=== PATIENT | female | born 1980 | race American Indian/Alaskan Native ===

== ENCOUNTER 2017-06-06 12:54 | Emergency (ER) | payer SELFPAY ==
[2017-06-06 14:28] LABS: Basophils % (Auto) 0.4 % (0.0-1.8); Eosinophils # (Auto) 0.1 K/mm3 (0.0-0.4); Eosinophils % (Auto) 1.3 % (0.0-4.3); Hematocrit 39.7 % (30.3-42.9); Hemoglobin 13.4 gm/dl (10.1-14.3); Lymphocytes # (Auto) 1.7 K/mm3 (1.2-5.4); Lymphocytes % (Auto) 31.6 % (13.4-35.0); Mean Corpuscular HGB Conc 34 % (30-34); Mean Corpuscular Hemoglobin 32 pg (28-32); Mean Corpuscular Volume 95 fl (79-97); Monocytes # (Auto) 0.4 K/mm3 (0.0-0.8); Monocytes % (Auto) 7.3 % (0.0-7.3); Platelet Count 218 K/mm3 (140-440); Red Blood Count 4.18 M/mm3 (3.65-5.03); Red Cell Distribution Width 13.5 % (13.2-15.2)
[2017-06-06 14:47] LABS: Alanine Aminotransferase 19 units/L (7-56); Albumin 4.1 g/dL (3.9-5); BUN/Creatinine Ratio 24; Blood Urea Nitrogen 12 mg/dL (7-17); Calcium 9.1 mg/dL (8.4-10.2); Hemolysis Index 7
[2017-06-06 17:52] LABS: Bilirubin,Urine NEG (Negative); Blood,Urine NEG (Negative); Color,Urine Yellow (Yellow); Nitrite,Urine NEG (Negative); Protein,Urine <15 mg/dL mg/dL (Negative); Urobilinogen,Urine < 2.0 mg/dL (<2.0)
--- NOTE | 2017-06-06 20:52 | Emergency Department Report ---
Chief Complaint: Abdominal Pain Stated Complaint: ABD PAIN, BURNING URINE, ITCHING - HPI History of Present Illness: 36-year-old female past medical history uterine fibroids, ovarian cysts presents with complaint of pelvic pain slight dysuria and vaginal discharge. Patient is awake alert and oriented 3 state she is having some lower abdominal discomfort and pain. Slight nausea no vomiting. States it began yesterday. States she is able tolerate fluids without significant difficulty. - ROS Review of Systems: History of ovarian cysts and uterine fibroids - Exam Vital Signs: Vital Signs 06/06/17 13:37 Temperature 99.1 F Pulse Rate 84 Respiratory 18 Rate Blood Pressure 116/62 O2 Sat by Pulse 98 Oximetry Physical Exam: Positive suprapubic pain, some right lower quadrant pain MSE screening note: Focused history and physical exam performed. Due to findings the following was ordered: Screening Assessment/Plan/Differential Dx: Pelvic pain, lower abdominal pain female 1- This initial assessment/diagnostic orders/clinical plan/ treatment(s) is/are subject to change based on pt's health status, clinical progression and re- assessment by fellow clinical providers in the ED. Further treatment and workup at subsequent clinical provers discretion. Patient/guardians urged not to elope from ED as their condition may be serious if not clinically assessed and managed. 2-ultrasound pelvis with Doppler to assess ovary, urinalysis CBC and BMP are unremarkable 3-patient will need pelvic swabs and pelvic exam ED Medical Decision Making - Lab Data Result diagrams: 06/06/17 14:00 06/06/17 14:00 ED Disposition for MSE Condition: Stable Instructions: Abdominal Pain (ED) Referrals: SUSSY KING MD [Primary Care Provider] - 3-5 Days
[2017-06-06] MEDS ORDERED: TORADOL IV ONE (21:05)
[2017-06-06] MEDS ORDERED: NACL 0.9% 1000 ML 1,000 ML IV ONE (22:31)
--- NOTE | 2017-06-06 22:42 | Emergency Department Report ---
<KELLEE CROW - Last Filed: 06/06/17 23:10> ED Female HPI - General Chief complaint: Abdominal Pain Stated complaint: ABD PAIN, BURNING URINE, ITCHING Time Seen by Provider: 06/06/17 22:38 Source: patient Mode of arrival: Ambulatory Limitations: No Limitations - History of Present Illness Initial comments: 36-year-old female past medical history ovarian cysts, tubal ligation presents with complaint of sharp to crampy lower abdominal pain for approximately 3-4 days and somewhat intermittently over the last week. Slightly worse on right than left. Possible dysuria reported by patient minimally increased urinary frequency. Patient also states she has whitish vaginal discharge and is concerned she may have been exposed to STD. Patient states the reason she came to the ED is because she is having lower abdominal pain/pelvic pain. Patient is awake alert and oriented 3 does not appear to be in severe distress. MD Complaint: vaginal discharge, dysuria, pelvic pain Onset/Timin -: days(s) Location: suprapubic, RLQ Radiation: suprapubic, RLQ Severity: moderate Severity scale (0 -10): 6 Quality: cramping, sharp Worsens with: urination Are you Now?: No Last Menstrual Period: 05/28/16 EDC: 03/04/17 - Related Data Previous Rx's Medication Instructions Recorded Last Taken Type Ciprofloxacin HCl [Cipro] 500 mg PO Q12H #14 tab 09/29/13 Unknown Rx HYDROcodone/APAP 5-325 [[place] 1 each PO Q6HR PRN #10 tablet 09/29/13 Unknown Rx 5-325 mg TAB] Phenazopyridine [Pyridium] 100 mg PO Q8H #9 tablet 09/29/13 Unknown Rx HYDROcodone/APAP 5-325 [[place] 1 each PO Q6HR PRN #10 tablet 07/28/14 Unknown Rx 5/325] Ondansetron [Zofran Odt] 4 mg PO Q6H PRN #10 tab.rapdis 07/28/14 Unknown Rx Vit-Fe Fumar-FA [ 1 each PO QDAY #30 tablet 07/28/14 Unknown Rx Vitamin] Ferrous Sulfate [Feosol 325 MG tab] 325 mg PO TID #90 tablet 03/02/15 Unknown Rx Ibuprofen [Motrin 800 MG tab] 800 mg PO Q8HR PRN #90 tablet 03/02/15 Unknown Rx oxyCODONE /ACETAMINOPHEN [Percocet 1 tab PO Q6HR PRN #30 tablet 03/02/15 Unknown Rx 5/325 mg] Naproxen [Naprosyn TAB] 500 mg PO BID PRN 6 Days #12 tablet 06/07/17 Unknown Rx metroNIDAZOLE [Flagyl] 500 mg PO Q12HR 7 Days #14 tab 06/07/17 Unknown Rx Allergies Allergy/AdvReac Type Severity Reaction Status Date / Time No Known Allergies Allergy Verified 06/06/17 13:37 ED Review of Systems ROS: Stated complaint: ABD PAIN, BURNING URINE, ITCHING Other details as noted in HPI Constitutional: denies: chills, fever Eyes: denies: eye pain, eye discharge, vision change ENT: denies: ear pain, throat pain Respiratory: denies: cough, shortness of breath, wheezing Cardiovascular: denies: chest pain, palpitations Endocrine: no symptoms reported Gastrointestinal: abdominal pain. denies: nausea, diarrhea Genitourinary: dysuria, discharge. denies: urgency Musculoskeletal: denies: back pain, joint swelling, arthralgia Skin: denies: rash, lesions Neurological: denies: headache, weakness, paresthesias Psychiatric: denies: anxiety, depression Hematological/Lymphatic: denies: easy bleeding, easy bruising ED Past Medical Hx - Past Medical History Hx Hypertension: No Hx Congestive Heart Failure: No Hx Diabetes: Yes (gestational) Hx Deep Vein Thrombosis: No Hx Renal Disease: No Hx Sickle Cell Disease: No Hx Seizures: No Hx Asthma: No Hx COPD: No Hx HIV: No Additional medical history: Uterine fibroids - Surgical History Additional Surgical History: C/S, myomectomy, Tubal ligation - Social History Smoking Status: Current Every Day Smoker Substance Use Type: Alcohol - Medications Home Medications: Home Medications Medication Instructions Recorded Confirmed Last Taken Type Ciprofloxacin HCl [Cipro] 500 mg PO Q12H #14 tab 09/29/13 03/02/15 Unknown Rx HYDROcodone/APAP 5-325 [[place] 1 each PO Q6HR PRN #10 tablet 09/29/13 03/02/15 Unknown Rx 5-325 mg TAB] Phenazopyridine [Pyridium] 100 mg PO Q8H #9 tablet 09/29/13 03/02/15 Unknown Rx HYDROcodone/APAP 5-325 [[place] 1 each PO Q6HR PRN #10 tablet 07/28/14 03/02/15 Unknown Rx 5/325] Ondansetron [Zofran Odt] 4 mg PO Q6H PRN #10 tab.rapdis 07/28/14 03/02/15 Unknown Rx Vit-Fe Fumar-FA [ 1 each PO QDAY #30 tablet 07/28/14 03/02/15 Unknown Rx Vitamin] Ferrous Sulfate [Feosol 325 MG tab] 325 mg PO TID #90 tablet 03/02/15 Unknown Rx Ibuprofen [Motrin 800 MG tab] 800 mg PO Q8HR PRN #90 tablet 03/02/15 Unknown Rx oxyCODONE /ACETAMINOPHEN [Percocet 1 tab PO Q6HR PRN #30 tablet 03/02/15 Unknown Rx 5/325 mg] Naproxen [Naprosyn TAB] 500 mg PO BID PRN 6 Days #12 tablet 06/07/17 Unknown Rx metroNIDAZOLE [Flagyl] 500 mg PO Q12HR 7 Days #14 tab 06/07/17 Unknown Rx ED Physical Exam - General Limitations: No Limitations General appearance: alert, in no apparent distress - Head Head exam: Present: atraumatic, normocephalic - Eye Eye exam: Present: normal appearance, PERRL, EOMI - ENT ENT exam: Present: mucous membranes moist - Neck Neck exam: Present: normal inspection - Respiratory Respiratory exam: Present: normal lung sounds bilaterally. Absent: respiratory distress - Cardiovascular Cardiovascular Exam: Present: regular rate, normal rhythm. Absent: systolic murmur, diastolic murmur, rubs, gallop - GI/Abdominal GI/Abdominal exam: Present: soft, normal bowel sounds - External exam: Present: normal external exam Speculum exam: Present: vaginal discharge (whitish vaginal discharge) Bi-manual exam: Present: cervical motion tendernes (no cervical motion tenderness, some right adnexal tenderness), adnexal tenderness - Extremities Exam Extremities exam: Present: normal inspection - Back Exam Back exam: Present: normal inspection - Neurological Exam Neurological exam: Present: alert, oriented X3, CN II-XII intact, normal gait - Psychiatric Psychiatric exam: Present: normal affect, normal mood - Skin Skin exam: Present: warm, dry, intact, normal color. Absent: rash ED Course Vital Signs 06/06/17 06/06/17 13:37 22:17 Temperature 99.1 F Pulse Rate 84 Respiratory 18 20 Rate Blood Pressure 116/62 O2 Sat by Pulse 98 Oximetry ED Medical Decision Making - Lab Data Result diagrams: 06/06/17 14:00 06/06/17 14:00 - Medical Decision Making A/P: Abdominal pain, ovarian cyst versus appendicitis 1-ultrasound and CT ordered, pending results 2-labs unremarkable 3-vaginal swabs sent 4- signed out the patient to nurse practitioner misread to follow-up results and treat accordingly Critical care attestation.: If time is entered above; I have spent that time in minutes in the direct care of this critically ill patient, excluding procedure time. ED Disposition Clinical Impression: Right ovarian cyst, Bacterial vaginosis Abdominal pain Qualifiers: Abdominal location: lower abdomen, unspecified Qualified Code(s): R10.30 - Lower abdominal pain, unspecified Uterine fibroid Qualifiers: Uterine leiomyoma location: unspecified location Qualified Code(s): D25.9 - Leiomyoma of uterus, unspecified Disposition: TO HOME OR SELFCARE Condition: Stable Instructions: Abdominal Pain (ED), Bacterial Vaginosis (ED), Ovarian Cyst (ED) , Uterine Fibroids (ED) Additional Instructions: Please follow up with outside Medical Center for [facility] REPA[facility]ER care and also primary care. Please call tomorrow to schedule an appointment. Please take naproxen and this will help with your abdominal pain as it more than likely coming from uterine fibroids and ovarian cysts. You have bacterial vaginosis and will need to take Flagyl twice daily for 7 days and avoid drinking all call while taking this medication as it can cause severe nausea and vomiting. Prescriptions: metroNIDAZOLE [Flagyl] 500 mg PO Q12HR 7 Days #14 tab Naproxen [Naprosyn TAB] 500 mg PO BID PRN 6 Days #12 tablet PRN Reason: Pain Referrals: [facility] [Outside] - 06/08/17 BAN[facility] REPAIRER, Dr. Riggins at [facility] [Other] - 06/08/17 Forms: STI Treatment and Prevention, Work/School Release Form(ED) <CHANELLE CARMICHAEL - Last Filed: 06/07/17 02:23> ED Course - Reevaluation(s) Reevaluation #1: 06/07/17 02:10 I discussed the patient and her ultrasound and CT scan findings along with wet prep. Patient with right ovarian cyst, probably uterine multiple Fibroids and bacterial vaginosis. ED Medical Decision Making - Lab Data Result diagrams: 06/06/17 14:00 06/06/17 14:00 Lab Results 06/06/17 06/06/17 06/06/17 Range/Units 14:00 14:00 14:00 WBC 5.4 (4.5-11.0) K/mm3 RBC 4.18 (3.65-5.03) M/mm3 Hgb 13.4 (10.1-14.3) gm/dl Hct 39.7 (30.3-42.9) % MCV 95 (79-97) fl MCH 32 (28-32) pg MCHC 34 (30-34) % RDW 13.5 (13.2-15.2) % Plt Count 218 (140-440) K/mm3 Lymph % (Auto) 31.6 (13.4-35.0) % Johnston % (Auto) 7.3 (0.0-7.3) % Eos % (Auto) 1.3 (0.0-4.3) % Baso % (Auto) 0.4 (0.0-1.8) % Lymph # 1.7 (1.2-5.4) K/mm3 Johnston # 0.4 (0.0-0.8) K/mm3 Eos # 0.1 (0.0-0.4) K/mm3 Baso # 0.0 (0.0-0.1) K/mm3 Seg Neutrophils % 59.4 (40.0-70.0) % Seg Neutrophils # 3.2 (1.8-7.7) K/mm3 Sodium 140 (137-145) mmol/L Potassium 3.8 (3.6-5.0) mmol/L Chloride 101.7 (98-107) mmol/L Carbon Dioxide 25 (22-30) mmol/L Anion Gap 17 mmol/L BUN 12 (7-17) mg/dL Creatinine 0.5 L (0.7-1.2) mg/dL Estimated GFR > 60 ml/min BUN/Creatinine Ratio 24 % Glucose 94 (65-100) mg/dL Calcium 9.1 (8.4-10.2) mg/dL Total Bilirubin 0.20 (0.1-1.2) mg/dL AST 14 (5-40) units/L ALT 19 (7-56) units/L Alkaline Phosphatase 73 (35-129) units/L Total Protein 6.9 (6.3-8.2) g/dL Albumin 4.1 (3.9-5) g/dL Albumin/Globulin Ratio 1.5 % HCG, Qual Negative (Negative) Urine Color (Yellow) Urine Turbidity (Clear) Urine pH (5.0-7.0) Ur Specific [place] (1.003-1.030) Urine Protein (Negative) mg/dL Urine Glucose (UA) (Negative) mg/dL Urine Ketones (Negative) mg/dL Urine Blood (Negative) Urine Nitrite (Negative) Urine Bilirubin (Negative) Urine Urobilinogen (<2.0) mg/dL Ur Leukocyte Esterase (Negative) Urine WBC (Auto) (0.0-6.0) /HPF Urine RBC (Auto) (0.0-6.0) /HPF U Epithel Cells (Auto) (0-13.0) /HPF 06/06/17 Range/Units 17:36 WBC (4.5-11.0) K/mm3 RBC (3.65-5.03) M/mm3 Hgb (10.1-14.3) gm/dl Hct (30.3-42.9) % MCV (79-97) fl MCH (28-32) pg MCHC (30-34) % RDW (13.2-15.2) % Plt Count (140-440) K/mm3 Lymph % (Auto) (13.4-35.0) % Johnston % (Auto) (0.0-7.3) % Eos % (Auto) (0.0-4.3) % Baso % (Auto) (0.0-1.8) % Lymph # (1.2-5.4) K/mm3 Johnston # (0.0-0.8) K/mm3 Eos # (0.0-0.4) K/mm3 Baso # (0.0-0.1) K/mm3 Seg Neutrophils % (40.0-70.0) % Seg Neutrophils # (1.8-7.7) K/mm3 Sodium (137-145) mmol/L Potassium (3.6-5.0) mmol/L Chloride (98-107) mmol/L Carbon Dioxide (22-30) mmol/L Anion Gap mmol/L BUN (7-17) mg/dL Creatinine (0.7-1.2) mg/dL Estimated GFR ml/min BUN/Creatinine Ratio % Glucose (65-100) mg/dL Calcium (8.4-10.2) mg/dL Total Bilirubin (0.1-1.2) mg/dL AST (5-40) units/L ALT (7-56) units/L Alkaline Phosphatase (35-129) units/L Total Protein (6.3-8.2) g/dL Albumin (3.9-5) g/dL Albumin/Globulin Ratio % HCG, Qual (Negative) Urine Color Yellow (Yellow) Urine Turbidity Clear (Clear) Urine pH 6.0 (5.0-7.0) Ur Specific [place] 1.019 (1.003-1.030) Urine Protein <15 mg/dl (Negative) mg/dL Urine Glucose (UA) Neg (Negative) mg/dL Urine Ketones Neg (Negative) mg/dL Urine Blood Neg (Negative) Urine Nitrite Neg (Negative) Urine Bilirubin Neg (Negative) Urine Urobilinogen < 2.0 (<2.0) mg/dL Ur Leukocyte Esterase Tr (Negative) Urine WBC (Auto) 1.0 (0.0-6.0) /HPF Urine RBC (Auto) 1.0 (0.0-6.0) /HPF U Epithel Cells (Auto) 2.0 (0-13.0) /HPF Wet prep: Greater than 20% clue cells, no trichomonas or yeast. - Radiology Data CT scan of the abdomen and pelvis reveals a 2.4 cm right ovarian cysts. No evidence of free fluid. The appendix is not identified. No definite inflammatory process seen below the cecum. An enlarged fibroid uterus. No acute process in the upper abdomen. Uterus is diffusely enlarged revealing headers Anita enhancements and calcifications compatible with multiple fibroids measuring up to 6 cm in diameter. No free fluid is seen. The bladder is normal Ultrasound transvaginal and abdominal pelvic reveals patient with probably fibroids and uterus. Probably functional cyst and right ovary. CT scan confirmed that patient has right ovarian cyst. good blood flow to both ovaries ED Disposition Is pt being admited?: No Does the pt Need Aspirin: No
--- NOTE | 2017-06-06 23:22 | Ultrasound Report ---
FINAL REPORT EXAM: US PELVIS DUPLEX DOPPLER COMP HISTORY: b/l adnexal pain worse on right than left TECHNIQUE: Transabdominal and transvaginal sonography of the pelvis. Duplex Doppler was performed. PRIORS: None. FINDINGS: The uterus measures 10.5 x 6 x 9 cm and contains an ovoid, heterogeneously hypoechoic-solid focus partially extending exophytically off left uterine corpus region measuring 7.2 x 6.6 x 5.3 cm, with possible partial marginal calcification. The endometrial stripe is within normal limits and measures 12 mm in AP dimension. The right ovary measures 4.2 x 2.7 x 4.4 cm and contains a rounded, complex cystic focus measuring approximately 2.5 cm. The left ovary measures 2.8 x 2.5 x 2.3 cm and is grossly unremarkable. Duplex Doppler shows appropriate blood flow present in the ovaries bilaterally. No adnexal masses or significant free peritoneal fluid. IMPRESSION: 1. Probable leiomyomatous change in the uterus. 2. Findings which may represent functional cystic change in the right ovary. Clinical correlation and followup pelvic ultrasound in 6-10 weeks advised to document resolution.
--- NOTE | 2017-06-06 23:24 | Ultrasound Report ---
FINAL REPORT EXAM: US TRANSVAGINAL HISTORY: pelvic pain right side, eval ovaries TECHNIQUE: Transabdominal and transvaginal sonography of the pelvis. Duplex Doppler was performed. PRIORS: None. FINDINGS: The uterus measures 10.5 x 6 x 9 cm and contains an ovoid, heterogeneously hypoechoic-solid focus partially extending exophytically off left uterine corpus region measuring 7.2 x 6.6 x5.3 cm, with possible partial marginal calcification. The endometrial stripe is within normal limits and measures 12 mm in AP dimension. The right ovary measures 4.2 x 2.7 x 4.4 cm and contains a rounded, complex cystic focus measuring approximately 2.5 cm. The left ovary measures 2.8 x 2.5 x 2.3 cm and is grossly unremarkable. Duplex Doppler shows appropriate blood flow present in the ovaries bilaterally. No adnexal masses or significant free peritoneal fluid. IMPRESSION: 1. Probable leiomyomatous change in the uterus. 2. Probable functional cystic change in the right ovary. Clinical correlation and followup pelvic ultrasound in 6-10 weeks advised to document resolution.
--- NOTE | 2017-06-07 01:48 | Cat Scan Report ---
FINAL REPORT EXAM: CT ABDOMEN PELVIS W CON HISTORY: right lower quadrant pain TECHNIQUE: Routine axial imaging was obtained of the abdomen and pelvis following the intravenous injection of 100 cc of Omnipaque 350. Oral contrast was also administered. There is delayed axial imaging for evaluation of the renal collecting structures and bladder. Parasagittal coronal reconstructions were also reviewed FINDINGS: The lung bases are clear. Pleural fluid is not seen. The liver is normal in size and shows a 5.2 millimeter low-density focus along the dome in the right hepatic lobe. Whether this represents a small cyst is uncertain. It is too small to characterize. The biliary tree appears normal. The pancreas, spleen, and adrenal glands appear normal. The kidneys enhance normally. There is no evidence of hydronephrosis. The bowel loops are normal in caliber and course. The appendix is not identified. Below the cecum is a right ovarian cyst measuring 2.4 cm in diameter. There are several surgical clips adjacent to the right ovary. Free fluid is not seen. No definite inflammatory changes are seen below the cecum. The uterus is diffusely enlarged revealing heterogeneous enhancement and calcifications compatible with multiple fibroids measuring up to 6 cm in diameter. Free fluid is not seen. The bladder appears normal. The left adnexa appears normal. The skeletal structures otherwise well maintained. IMPRESSION: 2.4 cm right ovarian cyst. No evidence of free fluid. The appendix is not identified. No definite inflammatory process seen below the cecum. Enlarged fibroid uterus. No acute process in the upper abdomen.
[2017-06-07 04:30] VITALS: BP 125/59
== END 2017-06-07 02:35 | disposition home or self-care (01) ==
LOC: ED 12:54
DX: N83.201 Unspecified ovarian cyst, right side (principal); D25.9 Leiomyoma of uterus, unspecified; N76.0 Acute vaginitis; R10.30 Lower abdominal pain, unspecified; F17.200 Nicotine dependence, unspecified, uncomplicated
CPT/HCPCS: 36415; 74177; 76830; 80053; 81001; 84703; 85025; 87210; 87591; 93975; 96361; 96374; 99284; J1885; J7030; Q9967